=== PATIENT | male | born 1955 | race Caucasian/White ===

== ENCOUNTER 2024-09-26 11:40 | Day surgery (SDC) | payer MEDICARE, SELFPAY ==
[2024-09-26 12:28] VITALS: BP 127/76; PULSE 81; RESP 18; TEMP 36.3; O2SAT 99
[2024-09-26 12:35] VITALS: BMI 26.0
[2024-09-26] MEDS: LACTATED RINGERS 1000ML 1,000 ML 50 ML IV (12:41)
--- NOTE | 2024-09-26 12:59 | P.PNANES_ITS ---
[facility] Disclaimer: The information contained in this section may have been updated after the patient was seen, as this information can be updated by other users. Medical History Ocular migraine History of broken finger Skin cancer Hypertension Surgical History No significant past surgical history Family History Other Glaucoma Hypertension Social History (Updated 09/26/24 @ 12:24 by Linn Vance RN) Smoking Status: Current every day smoker alcohol intake: current substance use type: denies use current occupational status: employed and retired Travel in the last 8 weeks: None caffeine: No [facility] Anesthesia Checklist Patient Identification Patient Identification: Verbal (Name & ) Structural Data Admitted From: Home Planned Operative Procedure/s: colonoscopy Consent for Planned Operative Procedure(s) Verified: Yes NPO Status Verified Time NPO: 00:00 Airway Assessment Mallampati Score:: Class III C-Spine Mobility Assessed: Yes TMJ Mobility Assessed: Yes Dentition: Poor Dentition Neurological Assessment Level of Consciousness: Awake, Alert and Appropriate Anesthesia Plan Anesthesia Risk discussed: Yes Anesthesia Plan: Verified ASA Class: II Anesthesia Type: MAC
--- NOTE | 2024-09-26 13:42 | EXP.HP ---
History of Present Illness *Admission Date: 09/26/24 *Reason for visit:: Screening for colon cancer *History of present illness: Mr. Linn is a 68-year-old gentleman who is here for screening colonoscopy/screening for colon cancer. The examination is deemed medically necessary for screening colonoscopy. The patient has been seen, interviewed and examined prior to the procedure by both myself and the anesthesia provider. [facility] Disclaimer: The information contained in this section may have been updated after the patient was seen, as this information can be updated by other users. Medical History (Updated 09/26/24 @ 13:52 by Zoltan Carroll II, MD) Ocular migraine History of broken finger Skin cancer Hypertension Surgical History No significant past surgical history Family History Other Glaucoma Hypertension Social History (Updated 09/26/24 @ 13:00 by Nikos Kay CRNA) Smoking Status: Current every day smoker alcohol intake: current substance use type: denies use current occupational status: employed and retired Travel in the last 8 weeks: None caffeine: No Have you lived/traveled outside [place] in past 30 days?: No Contact w/someone who lives/traveled outside [place] past 30 days?: No Exposure to someone with infectious disease in past 14 days?: No Do you have a fever (greater than 100.4 F or 38 C)?: No Have you tested positive for COVID-19: No Exposed to someone with COVID-19 in past 14 days?: No Do you have a sore throat?: No Do you have a cough?: No Do you have any weakness?: No Are you experiencing any nausea/vomitting?: No Do you have any diarrhea?: No Are you experiencing any unusual bleeding?: No Do you have any muscle aches/pain?: No Do you have any abdominal pain?: No Are you experiencing loss of taste or smell?: No Review of Systems Review of Systems Review of systems (narrative): Negative *Cardiovascular Comments: Negative *Gastrointestinal Comments: Negative *Genitourinary Comments: Negative *Musculoskeletal Comments: Negative *Neurologic Comments: Negative Meds Home Medications and Allergies Home Medications ?Medication ?Instructions ?Recorded ?Confirmed ?Type sodium,potassium,mag sulfates 17.5 See Rx Instructions PO .COMPLEX 09/14/24 Rx gram-3.13 gram-1.6 gram oral soln #354 mL (Suprep Bowel Prep Kit) lisinopril 20 mg tablet 20 mg PO DAILY 09/20/24 09/26/24 History New Prescriptions to Start Prescriptions: Allergies Allergy/AdvReac Type Severity Reaction Status Date / Time No Known Allergies Allergy Verified 09/26/24 12:22 Exam Data for Last 24 hours Vital signs and Labs for Last 24 Hours: Temp Pulse Resp BP Pulse Ox O2 Del Method 97.4 F L 81 18 127/76 99 Room Air 09/26/24 12:28 09/26/24 12:28 09/26/24 12:28 09/26/24 12:28 09/26/24 12:28 09/26/24 12:28 I & O for Last 24 hours: Intake & Output 09/23/24 09/24/24 09/25/24 09/26/24 23:59 23:59 23:59 23:59 Weight 187 lb *Routine HEENT Exam Head: Present normocephalic Eye: Present EOMI and PERRL ENT: Present mucous membranes moist *Routine Neck Exam Neck: Present supple *Routine Respiratory Exam Respiratory: Present CTA bilaterally *Routine Cardiovascular Exam Cardiovascular: Present RRR *Routine Abdominal Exam Abdominal: Present soft and normoactive bowel sounds; Absent tenderness *Routine Rectal Exam Rectal:: deferred *Routine Genitalia Exam Genitalia:: deferred *Routine Extremities Exam Extremities: Absent cyanosis, clubbing or edema *Routine Skin Exam Skin: Present warm; Absent rash *Routine Neurological Exam Neurological: Present alert and oriented X3 Assessment and Plan *Assessment and plan (1) Screening for colon cancer: Status: Acute Category: Medical Code(s): Z12.11 - Encounter for screening for malignant neoplasm of colon Plan A/P: 1. Screening for colon cancer is the preprocedural diagnosis. The patient will be anesthetized/sedated using MAC sedation. The patient has been seen and examined. Cardiac and lung assessment prior to the examination is stable. Proceed with planned screening colonoscopy
[2024-09-26 13:53] VITALS: O2SAT 100
--- NOTE | 2024-09-26 13:54 | HMH.PROCNOTE ---
[facility] Procedure Note Date: 09/26/24 Time: 14:15 Procedure Note:: Colonoscopy Procedure Report: Colonoscopy with cold snare polypectomy Endoscopist: Zoltan Carroll II, MD Referring physician: JANETH Lundberg Date of Procedure: September 26, 2024 Equipment: Olympus 190 variable stiffness pediatric colonoscope Sedation: MAC sedation Indication: Mr. Linn is a 68-year-old gentleman who is here for screening/surveillance colonoscopy. His last colonoscopy was 16 years ago at the age of 52. The patient reports no abdominal pain, weight loss, change in his bowel habits or rectal bleeding. He reports no family history of colon cancer. Procedure: Prior to the procedure, a history and physical exam was performed, and patient's medications and allergies were reviewed. The risks, benefits and alternatives of the sedation and procedure were discussed with the patient. All questions were answered and informed consent was obtained. The patient was brought to the procedure room. Patient identification and proposed procedure were verified by the physician and the nurse. The patient was placed in a left lateral decubitus position and the scope was passed under direct vision. Throughout the procedure, the patient's blood pressure, pulse, and oxygen saturations were monitored continuously. The colonoscopy was accomplished without difficulty. The patient tolerated the procedure well. Findings: On digital rectal examination there was normal rectal tone. There were no external hemorrhoids. The colonoscope was introduced through the anal canal to the rectum and advanced to the cecum. The ileocecal valve and appendiceal orifice were identified. The scope was advanced a short distance into the ileum which appeared grossly normal. The scope was then withdrawn into the colon. There were 3 polyps (ascending x 1 (16 to 17 mm with mucus?probable serrated adenoma), descending x 1 (5 mm) and sigmoid x 1 (pedunculated 9 mm adenoma)). These were all removed via cold snare polypectomy. The remaining cecum, ascending and transverse colon and mucosa were grossly normal. There were scattered diverticuli throughout the descending and sigmoid colon (LEFT colon). The rectum itself was normal. Upon retroflexion within the rectum there were grade 2 internal hemorrhoids. The preparation was excellent throughout with Hancock Preparation Score of 9. The cecal time was 17 minutes. Impression: 1. Colonic polyps x 3 (ranging in size from 5 to 17 mm) 2. Left-sided diverticulosis 3. Grade 2 internal hemorrhoids Plan: I will follow-up the polyp histology. Based upon the size and adenomatous nature, I would recommend repeat surveillance colonoscopy again in 3 years. I would encourage psyllium bulking fiber supplementation on a long-term daily maintenance basis.
[2024-09-26 14:17] VITALS: BP 91/50; PULSE 78; RESP 16; TEMP 36.4; O2SAT 97
[2024-09-26 14:27] VITALS: BP 99/52; PULSE 76; RESP 16; O2SAT 98
[2024-09-26 14:37] VITALS: BP 109/62; PULSE 79; RESP 16; O2SAT 100
[2024-09-26 14:45] VITALS: BP 117/77; PULSE 77; RESP 16; O2SAT 98
== END 2024-09-26 14:51 | disposition home or self-care (01) ==
PROVIDERS: PCP Nurse Practitioner Family; Visit Provider Internal Medicine Gastroenterology
PROC: (CPT 45385; principal; 2024-09-26 13:00)
DX: Z12.11 Encounter for screening for malignant neoplasm of colon (principal); K63.5 Polyp of colon; K57.30 Diverticulosis of large intestine without perforation or abscess without bleeding; K64.1 Second degree hemorrhoids
CPT/HCPCS: 45385; J7120

== ENCOUNTER 2025-06-28 15:00 | Outpatient (RCR) | payer MEDICARE, SELFPAY | END 2025-06-28 23:59 | disposition home or self-care (01) | LOC: PT.CARL 15:00 | PROVIDERS: PCP Nurse Practitioner Family; Visit Provider Nurse Practitioner Family | DX: M77.02 Medial epicondylitis, left elbow (principal) | CPT/HCPCS: 97035; 97110; 97161; 97530 ==

== ENCOUNTER 2025-07-25 14:00 | Outpatient (RCR) | payer MEDICARE, SELFPAY | END 2025-07-25 23:59 | disposition home or self-care (01) | LOC: PT.CARL 14:00 | PROVIDERS: PCP Nurse Practitioner Family; Visit Provider Nurse Practitioner Family | DX: M77.02 Medial epicondylitis, left elbow (principal) | CPT/HCPCS: 97035; 97110; 97530 ==

== ENCOUNTER 2025-08-22 11:00 | Outpatient (RCR) | payer MEDICARE, SELFPAY | END 2025-08-30 11:53 | disposition home or self-care (01) | LOC: PT.CARL 11:00 | PROVIDERS: PCP Nurse Practitioner Family; Visit Provider Nurse Practitioner Family | DX: M77.02 Medial epicondylitis, left elbow (principal) | CPT/HCPCS: 97110; 97530 ==